=== PATIENT | male | born 1960 | race Caucasian/White ===

== ENCOUNTER 2017-07-23 09:55 | Inpatient (IN) | payer OTHER ==
--- NOTE | 2017-07-23 11:05 | ED ---
General Adult HPI - General Chief complaint: Psychiatric Symptoms Stated complaint: Anxiety Time Seen by Provider: 07/23/17 10:17 Source: patient, RN notes reviewed Mode of arrival: ambulatory Limitations: no limitations - History of Present Illness Initial comments: Patient 56-year-old male who presents emergency room today with a chief complaint of increased anxiety. He does admit that he's had some thoughts of hurting himself. He states that if he was planning to do anything he would use a gun. He states he does have guns at home. Patient denies because of hurting anyone else. He does admit to increased issues at work and at home. Does not want detail. Patient states that he has been taking Wellbutrin along with Xanax for many years. He states he does see a psychiatrist has not been recently was exposed to have an appointment this coming week. States having a very difficult time sleeping at night feel like is not functioning well and sent him here today. Patient denies any recent fever, chills, shortness of breath, chest pain, back pain, headaches or visual changes, or any other complaints. - Related Data Home Medications Medication Instructions Recorded Confirmed ALPRAZolam [Xanax] 0.5 mg PO BID PRN 07/23/17 07/23/17 buPROPion XL [Wellbutrin Xl] 150 mg PO DAILY 07/23/17 07/23/17 Allergies Allergy/AdvReac Type Severity Reaction Status Date / Time cefuroxime [From Ceftin] AdvReac Nausea & Verified 07/23/17 10:45 Vomiting paroxetine [From Paxil] AdvReac Confusion Verified 07/23/17 10:45 sertraline [From Zoloft] AdvReac Confusion Verified 07/23/17 10:45 Review of Systems ROS Statement: Those systems with pertinent positive or pertinent negative responses have been documented in the HPI. ROS Other: All systems not noted in ROS Statement are negative. Past Medical History Additional Past Medical History / Comment(s): kidney stones History of Any Multi-Drug Resistant Organisms: None Reported Past Surgical History: Hernia Repair, Orthopedic Surgery Past Psychological History: Anxiety, Depression Smoking Status: Never smoker Past Alcohol Use History: Occasional Past Drug Use History: None Reported General Exam - General Exam Comments Initial Comments: General: The patient is awake and alert, in no distress, and does not appear acutely ill. Eye: Pupils are equal, round and reactive to light, extra-ocular movements are intact. No nystagmus. There is normal conjunctiva bilaterally. No signs of icterus. Ears, nose, mouth and throat: There are moist mucous membranes and no oral lesions. Neck: The neck is supple, there is no tenderness or JVD. Cardiovascular: There is a regular rate and rhythm. No murmur, rub or gallop is appreciated. Respiratory: Lungs are clear to auscultation, respirations are non-labored, breath sounds are equal. No wheezes, stridor, rales, or rhonchi. Musculoskeletal: Normal ROM, no tenderness. Strength 5/5. Sensation intact. Pulses equal bilaterally 2+. Neurological: A&O x 3. CN II-XII intact, There are no obvious motor or sensory deficits. Coordination appears grossly intact. Speech is normal. Skin: Skin is warm and dry and no rashes or lesions are noted. Psychiatric: Cooperative, appropriate mood & affect, normal judgment. Limitations: no limitations Course Vital Signs 07/23/17 10:13 Temperature 97.3 F L Pulse Rate 84 Respiratory 16 Rate Blood Pressure 165/90 O2 Sat by Pulse 98 Oximetry Medical Decision Making - Medical Decision Making Patient's seen here in the emergency room by [facility]. The have recommend admission. Patient will sign himself in. Disposition Clinical Impression: Depression, Suicidal ideation Disposition: TRANSFER TO PSYCH HOSP/UNIT Condition: Stable Time of Disposition: 12:10
[2017-07-23] MEDS ORDERED: MAGNESIUM HYDROXIDE 2,400 MG/10 ML CUP PO PRN (13:32)
[2017-07-23] MEDS ORDERED: ZIPRASIDONE 20 MG VIAL IM PRN (13:32)
[2017-07-23] MEDS ORDERED: MAG HYDROX/AL HYDROX/SIMETH 30 ML CUP PO PRN (13:32)
[2017-07-23] MEDS ORDERED: ACETAMINOPHEN TAB 325 MG TAB PO PRN (13:32)
[2017-07-23] MEDS ORDERED: LORazepam 1 MG TAB PO PRN (13:32)
[2017-07-23 14:13] VITALS: BMI 25.2
[2017-07-23] MEDS ORDERED: OLANZapine 5 MG TAB PO STA (19:34)
[2017-07-23] MEDS: OLANZapine 5 MG TAB PO SCH (20:37)
[2017-07-23] MEDS: IMIPRAMINE 25 MG TAB PO SCH (20:37)
--- NOTE | 2017-07-24 04:37 | HP ---
HISTORY AND PHYSICAL IDENTIFYING DATA: The patient is a 56-year-old male. He lives alone. He presented to the emergency room for evaluation. CHIEF COMPLAINT: The patient has had increasing problems with anxiety, depression, and very poor sleep. He had thoughts of harming himself, including thoughts that he might use a gun. He did indicate that he has guns at home. HISTORY OF PRESENTING ILLNESS: The patient has not had a prior psychiatric hospitalization. He is followed by Dr. Simmons. Current psychotropic medications include Wellbutrin XL 150 mg a day and Xanax 0.5 mg twice a day p.r.n. The patient indicates that he rarely takes more than one tablet a day of Xanax. He says that in the last few weeks his sleep has taken abrupt turn. He will go to sleep. He thinks he is asleep for only a very short period of time and then suddenly he wakes in the start. He says he is wide awake. His mind is racing. He gets quite anxious and he is not able to fall back to sleep. 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 He notes that he first got into depression about 7 years ago when his father . He said he got into quite a bit of grief at that time and that was the first time he got very depressed. He said many things crashed in his life. He has been on the Wellbutrin and Xanax since then. He says going back in the last year he was doing fairly well during the summer. He thinks things seemed to begin to change for him in early May. He was having relationship issues. He was getting into some panic where he feels tightness in his chest in the epigastric area. He says that some complicating factors is that he had the flu at [place] and developed quite a bit of GI issues that were very bothersome with him. He got quite down with that. He says he has had on and off problems with both reflux and GERD. He has taken some GI medications though never felt they quite worked. He does drink alcohol occasionally, though says that his last use was at [employer] when he drank 2 beers. He has not had any alcohol since then. He has had the past periods where he has drank more. He said if he goes back to last summer he likely would have been drinking 3 to 5 beers twice a week and also if he was out with friends he might drink a number of years more than that. He feels that he has never had any alcohol- related issues. He has never been in treatment for any substance use issues. He does not smoke marijuana or use any other psychotropic medications. He says that his main issue currently is the intense anxiety he gets with the serious sleep disorder. He notes that some of the time he may be lying in bed and then start developing racing thoughts that he suggests could be drifting off into some dreams. He also will wake up and have a lot of vivid images. He says that in the past he felt his medications were doing well for him, but since May on he has slipped. He had loss of motivation, energy, and interest. He did not really describe specifically what stress issues he had at work. It is noted that he is single, never and has no children. Does seem to have a fairly isolated life with not much of a support network beyond people at work, though he acknowledges work relationships have been stressful. He is admitted for further evaluation. SUBSTANCE USE HISTORY: Negative. PAST MEDICAL HISTORY AND REVIEW OF SYSTEMS: As per medical consultation. FAMILY AND SOCIAL HISTORY: The only information I have is as above. He is a high school graduate. He has worked primarily in [employer] and feels that he has been successful at his work. MENTAL STATUS EXAM: Patient was somewhat restless. He gave good eye contact. Psychomotor activity was otherwise normal. He answered questions with direct responses. He had a flat affect. His mood was depressed. He seemed moderately distressed. He was appropriate in his interview. On cognitive exam, he was oriented x3 and alert. Recent and remote memory was intact. Attention and concentration were fair. Insight and judgment were fair. He could spell world forward and backwards. He did adequate calculations. Fund of knowledge and intellectual level average. PHYSICAL EXAM: As per medical consultation. ASSESSMENT: This 56-year-old male is diagnosed with major depression, chronic and recurrent severe with acute exacerbation without psychotic features. In addition, he likely has exacerbation from long-term use of benzodiazepines, namely Xanax and may well be having significant Xanax withdrawal issues. He likely has a very disturbed sleep pattern in part related to long-term use of benzodiazepines. He struggles with social supports, which seems to be quite a weakness for him. Strengths include that he functions well independently, maintains a good work habit and has some insight about his situation. DIAGNOSES: 1. Major depression, chronic and recurrent with acute exacerbation, severe, without psychotic features. 2. Xanax/benzodiazepine dependence in acute withdrawal. 3. Gastrointestinal distress. RECOMMENDATIONS: We will engage the patient in a comprehensive medical psychiatric and psychosocial evaluation. We will have the patient involved in individual and group therapeutic activities. I had an extensive discussion with the patient regarding risks with benzodiazepine use including both problems with memory and motor impairment. The patient can acknowledge that he identifies both those issues with some forgetfulness and some question in coordination. 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 I discussed the course of withdrawal, namely that we need to focus on withdrawal over the next several weeks and that I would look for some improvement in symptoms over the next 4 to 6 weeks. We discussed that we can work out a plan for him to develop some skills to help better manage early withdrawal symptoms. At this point, I will start the patient on Zyprexa 5 mg 3 times a day. The aim of Zyprexa is to help reduce physiologic stress response relating to benzodiazepine withdrawal. In addition, I suspect the patient may have some PTSD issues that Zyprexa may also help. In addition, I will increase Wellbutrin XL to 300 mg a day. I discussed that it would be reasonable to have him in a therapeutic level of his antidepressant, even though I would expect limited benefit at best from his antidepressant during the process of early benzodiazepine withdrawal. I will start the patient on Tofranil 25 mg at bedtime. The aim of Tofranil is to help improve sleep architecture to reduce the dreaming that seems like may be a problem for him falling asleep as well as midcycle awakening. Tofranil has the specific effect in increasing REM latency for dreaming to occur in the appropriate stage 4 sleep range of sleep. We had a discussion about long-term treatment issues. We will focus on stabilization and discharge planning. KAYY / MARSHA: [id number] /
[2017-07-24] MEDS: OLANZapine 5 MG TAB PO SCH ×2 (08:28→17:23)
[2017-07-24] MEDS: buPROPion XL 300 MG TAB.ER.24H PO SCH (08:28)
[2017-07-24 08:44] LABS: Basophils # (A) 0.1 k/uL (0-0.2); Basophils % (A) 1 %; Eosinophils # (A) 0.1 k/uL (0-0.7); Eosinophils % (A) 1 %; HGB 15.3 gm/dL (13.0-17.5); Lymphocytes # (A) 2.4 k/uL (1.0-4.8); Lymphocytes % (A) 31 %; MCH 29.6 pg (25.0-35.0); MCHC 31.8 g/dL (31.0-37.0); Mean Platelet Volume 7.3; Monocytes # (A) 0.4 k/uL (0-1.0); Monocytes % (A) 5 %; Neutrophils # (A) 4.6 k/uL (1.3-7.7); Neutrophils % (A) 59 %; Platelet Count 290 k/uL (150-450); RBC 5.16 m/uL (4.30-5.90); RDW 14.4 % (11.5-15.5); WBC 7.8 k/uL (3.8-10.6)
[2017-07-24] MEDS ORDERED: buPROPion XL 150 MG TAB.ER.24H PO SCH ×2 (09:00)
[2017-07-24 09:07] LABS: ALT 35 U/L (21-72); AST 19 U/L (17-59); Albumin 4.1 g/dL (3.5-5.0); Alkaline Phosphatase 62 U/L (38-126); Anion Gap 10 mmol/L; Blood Urea Nitrogen 17 mg/dL (9-20); Carbon Dioxide 32 mmol/L (22-30); Chloride 104 mmol/L (98-107); Glucose 100 mg/dL (74-99); Potassium 4.3 mmol/L (3.5-5.1); Sodium 146 mmol/L (137-145); Total Bilirubin 0.5 mg/dL (0.2-1.3); Total Protein 6.7 g/dL (6.3-8.2)
--- NOTE | 2017-07-24 11:07 | PN ---
PROGRESS NOTE DATE OF SERVICE: 07/24/2017 CHIEF COMPLAINT: The patient has had increasing problems with anxiety, depression, and very poor sleep. He had thoughts of harming himself including thoughts that he might use a gun. He did indicate that he had guns at home. INTERVAL HISTORY: Patient has been doing fair. He had a quiet evening last night. He said with some surprise that he slept well last night at least until 5 in the morning. He woke up at 5 and then was able to get to get back to sleep for a little longer. He says that was quite refreshing for him. He did not seem to have any nightmare experiences. He continues to say his mood is somewhat down. He noted that he would not be too inclined to get involved in individual psychotherapy. He asked questions about Xanax withdrawal issues. He has not had change in his general health. He tolerates his psychotropic medications. MENTAL STATUS: Patient gave fair eye contact. Psychomotor activity was slowed. Speech was monotone. He answered questions with brief responses. His thoughts were clear. His affect blunted. His mood quiet. He did not appear to be significantly distressed. ASSESSMENT: I will continue the current diagnosis and treatment plan. I will continue psychotropic medications the same. I had an extensive discussion with the patient regarding the benzodiazepine withdrawal issues. We discussed that therapy might be appropriate given that he has identified a number of stress issues including relationship issues and work stress. I discussed that on the other hand therapy tends to be fairly limited intervention in the early course of withdrawal and that it can be more effective in terms of some in depth cycle therapy when he is at least 6 to 8 weeks through benzodiazepine withdrawal. We will continue to focus on stabilization and discharge planning. MMODL / IJN: [id number] /
--- NOTE | 2017-07-24 14:57 | P.MDCNMH ---
History of Present Illness H&P Date: 07/24/17 This is a 56-year-old male patient of Dr. 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 Patient states that he has been on Wellbutrin and Xanax for years. He has had increased problems with depression for the past couple months and sleep problems for the last couple weeks. He states he lies in bed like a zombie for hours and cannot sleep. He also has trouble functioning. His mother brought him into [facility] emergency center for evaluation. He was then transferred and admitted to the mental health unit. Pressure has been running high and patient has not been on anything for this in the past. TSH 2.730. Patient states he received trazodone last night and was able to sleep. Review of Systems All systems: negative Constitutional: Denies chills, Denies fever Eyes: denies blurred vision, denies pain Ears, nose, mouth and throat: Denies headache, Denies sore throat Cardiovascular: Denies chest pain, Denies shortness of breath Respiratory: Denies cough Gastrointestinal: Denies abdominal pain, Denies diarrhea, Denies nausea, Denies vomiting Musculoskeletal: Denies myalgias Integumentary: Denies pruritus, Denies rash Neurological: Denies numbness, Denies weakness Psychiatric: Reports anxiety, Reports depression, Reports difficulty concentrating, Reports insomnia Endocrine: Denies fatigue, Denies weight change Past Medical History Additional Past Medical History / Comment(s): kidney stones, 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 Past Anesthesia/Blood Transfusion Reactions: No Reported Reaction Past Psychological History: Anxiety, Depression Smoking Status: Never smoker Past Alcohol Use History: Occasional Additional Past Alcohol Use History / Comment(s): Patient has been a lifelong nonsmoker. He drinks alcohol occasionally. He is single and lives alone. Past Drug Use History: None Reported - Past Family History Father Additional Family Medical History / Comment(s): Father at age 75 from an aneurysm. Mother Additional Family Medical History / Comment(s): Mother is alive at age 80 with no major medical problems. Sister(s) Additional Family Medical History / Comment(s): Patient has 1 sister with no major medical problems. Patient does not have any children. Medications and Allergies Home Medications Medication Instructions Recorded Confirmed Type ALPRAZolam [Xanax] 0.5 mg PO BID PRN 07/23/17 07/23/17 History buPROPion XL [Wellbutrin Xl] 150 mg PO DAILY 07/23/17 07/23/17 History Allergies Allergy/AdvReac Type Severity Reaction Status Date / Time cefuroxime [From Ceftin] AdvReac Nausea & Verified 07/23/17 10:45 Vomiting paroxetine [From Paxil] AdvReac Confusion Verified 07/23/17 10:45 sertraline [From Zoloft] AdvReac Confusion Verified 07/23/17 10:45 Physical Exam Vitals: Vital Signs Temp Pulse Pulse Resp BP BP Pulse Ox 07/24/17 06:41 98.4 F 70 16 138/84 07/23/17 13:58 97.9 F 77 20 142/91 98 07/23/17 12:39 69 17 158/92 97 Gen: This is a 56-year-old male. He is cooperative and appears anxious. HEENT: Head is atraumatic, normocephalic. Pupils equal, round. Sclerae is anicteric. NECK: Supple. No JVD. No lymphadenopathy. No thyromegaly. LUNGS: Clear to auscultation. No wheezes or rhonchi. No intercostal retractions. HEART: Regular rate and rhythm. No murmur. ABDOMEN: Soft. Bowel sounds are present. No masses. No tenderness. EXTREMITIES: No pedal edema. No calf tenderness. NEUROLOGICAL: Patient is awake, alert and oriented x3. Cranial nerves 2 through 12 are grossly intact. Cranial Nerve Examination - Cranial Nerves Cranial Nerve II- Optic: Intact Cranial Nerve III- Oculomotor: Intact Cranial Nerve IV- Trochlear: Intact Cranial Nerve V- Trigeminal: Intact Cranial Nerve - Abducens: Intact Cranial Nerve VII- Facial: Intact Cranial Nerve VIII- Auditory: Intact Cranial Nerve IX- Glossopharyngeal: Intact Cranial Nerve X- Vagus: Intact Cranial Nerve XI- Accessory: Intact Cranial Nerve XII- Hypoglossal: Intact Results CBC & Chem 7: 07/24/17 08:22 07/24/17 08:22 Labs: Abnormal Lab Results - Last 24 Hours (Table) 07/24/17 Range/Units 08:22 Sodium 146 H (137-145) mmol/L Carbon Dioxide 32 H (22-30) mmol/L Glucose 100 H (74-99) mg/dL Assessment and Plan Plan: 1. Recurrent depression and generalized anxiety disorder with insomnia. Patient admitted to the mental health unit. Continue current plan of care. 2. 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 3. Hypertension. Losartan 50 daily grams daily will be started. 4. Family history of aneurysm. Recommend patient have evaluation for aneurysm as an outpatient Impression and plan of care have been directed as dictated by the signing physician. Marguerite Matias nurse practitioner acting as scribe for signing physician.
[2017-07-24] MEDS: LOSARTAN 50 MG TAB PO SCH (17:23)
[2017-07-24] MEDS: IMIPRAMINE 25 MG TAB PO SCH (21:00)
[2017-07-24] MEDS: OLANZapine 2.5 MG TAB PO SCH (21:01)
[2017-07-25] MEDS: OLANZapine 2.5 MG TAB PO SCH (08:25)
[2017-07-25] MEDS: buPROPion XL 300 MG TAB.ER.24H PO SCH (08:25)
[2017-07-25] MEDS: LOSARTAN 50 MG TAB PO SCH (08:25)
[2017-07-25] MEDS ORDERED: OLANZapine 5 MG TAB PO ONE (13:02)
[2017-07-25] MEDS: OLANZapine 5 MG TAB PO SCH ×2 (17:33→21:18)
[2017-07-25] MEDS ORDERED: diphenhydrAMINE 50 MG CAP PO STA (17:38)
[2017-07-25] MEDS ORDERED: LOPERAMIDE 2 MG CAP PO PRN (17:38)
[2017-07-25] MEDS ORDERED: IMIPRAMINE 25 MG TAB PO SCH ×2 (19:15→21:00)
--- NOTE | 2017-07-25 20:56 | PN ---
PROGRESS NOTE DATE OF SERVICE: 07/25/2017 CHIEF COMPLAINT: The patient has had increasing problems with anxiety, depression and very poor sleep. He had thoughts of harming himself, including thoughts that he might use a gun. He did indicate that he had guns at home. INTERVAL HISTORY: Patient has been doing fair. He had a quiet evening last night. He said he did not sleep as well last night as he did the night before. His anxiety level has been up and down. He noted this morning that he had quite a bit of tremor that he had less of yesterday. He is quite anxious. He says that the anxiety seems to intensify the tremor, though also the tremor sets off more anxiety for him. He does come out in the day area. He will attend groups. He tends to be on the quiet side and does not interact too much with others. He appears to tolerate his psychotropic medications. MENTAL STATUS: Patient gave fair eye contact. He was restless. His thoughts were clear, his affect anxious, his mood dysphoric. He was moderately distressed. ASSESSMENT: I will continue the current diagnosis and the treatment plan. I will give him a one- time dose of Benadryl 100 mg p.o. It is not likely that he is experiencing extrapyramidal side effects from Zyprexa, though if he is, the Benadryl may help quiet that. I suspect the main issue is that he is in significant withdrawal relating to benzodiazepine withdrawal. We will continue to focus on stabilization and discharge planning. KAYY / MARSHA: [id number] /
[2017-07-26] MEDS: LOSARTAN 50 MG TAB PO SCH (08:32)
[2017-07-26] MEDS: buPROPion XL 300 MG TAB.ER.24H PO SCH (08:32)
[2017-07-26] MEDS: OLANZapine 5 MG TAB PO SCH ×3 (08:32→21:14)
--- NOTE | 2017-07-26 12:25 | DS ---
DISCHARGE SUMMARY DATE OF SERVICE: 07/26/2017 DATE OF ADMISSION: 07/23/2017 DATE OF DISCHARGE: 07/26/2017 ADMISSION AND DISCHARGE DIAGNOSES: 1. Major depression, chronic, recurrent with acute exacerbation, severe, without psychotic features. 2. Xanax, benzodiazepine dependence and acute withdrawal. 3. Gastrointestinal distress. HISTORY OF PRESENT ILLNESS: The patient is a 56-year-old male. He presented to the emergency room with increasing anxiety, depression, and very poor sleep. He had thoughts of harming himself including thoughts that he might use a gun. He did indicate that he had guns at home. He has been followed by Dr. Simmons and has been on a combination of Wellbutrin XL 150 mg a day and Xanax 0.5 mg twice a day as needed. The patient indicates that typically he would only take one Xanax per day. He noted in the last few weeks a sharp change in his sleep pattern. He would go to sleep and then abruptly wake up soon after and then not be able to fall back to sleep. His mind would race. He would get quite anxious. 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 He had some relationship issues and other family issues that were also distressing to him. He said he got into depression 7 years ago when his father . At that time he became very depressed. Since being on the Wellbutrin and Xanax, he felt that he was doing fairly well up until this last fall. He feels that somewhere around May he began having some decline in mood. He was also having relationship issues at that time. He had the flu at [place], which he says added to some of his distress. He minimized use of alcohol of late and did not identify any past issues with alcohol. He was admitted for further evaluation. PAST MEDICAL HISTORY AND PHYSICAL EXAM: As per medical consultation of Dr. Preston. MENTAL STATUS EXAM: The patient was somewhat restless. He gave good eye contact. Psychomotor activity was otherwise normal. He gave direct responses. His affect was flat. Mood depressed. He was moderately distressed. Cognitive exam was clear. COURSE OF HOSPITALIZATION: Patient was admitted for a comprehensive medical psychiatric and psychosocial evaluation. We engaged the patient in individual and group therapeutic activities. On admission I continued the patient on Wellbutrin XL though we increased his dose to 300 mg a day. I discontinued Xanax. I started the patient on Zyprexa 5 mg 3 times a day for management of physiologic stress response relating to early acute benzodiazepine withdrawal. I also started the patient on Tofranil 25 mg at bedtime. The aim of Tofranil was to help with sleep particularly in terms of its affect on improving sleep architecture. The patient had a somewhat up and down course in his limited time on the unit. The first night on his medications he slept fairly well. The next night, a little less so. He had ups and downs in anxiety. He had one point where he got quite tremulous. He attended activities. He was appropriate in his interactions. He tolerated his medications well. We had extensive discussions about expectations for early withdrawal. I discussed with the patient that Xanax would not be an appropriate long-term medication for him and also there are risks with Xanax particularly including memory and motor impairment. The patient had been noting trouble that he was having with memory and some difficulties with cognition. We discussed that as he gets through withdrawal, he is likely to see an improvement perhaps as early as 10 days off of Xanax. In addition, we discussed that it would be a risk for him to be taking Xanax and working in construction due to the potential for troubles with coordination and motor performance. The patient seemed to have a fairly good understanding of the expectations of withdrawal. He understands that he is likely to continue to have some ups and downs with anxiety, perhaps tremors and other physical symptoms of withdrawal, though I anticipate gradual and progressive improvement over the next 6 weeks. We discussed that the first target for clearing of withdrawal would be September 07. At that point, I would anticipate him being about 60% through withdrawal. However, I would suspect that he would see at least a moderate amount of improvement by that time. We did discuss that the first 2 weeks of withdrawal are likely to be the most problematic which is where he is at right now. He was willing to work on activities that could help lessen withdrawal. We talked about a therapeutic walking program for frequent walks outdoors to help relax and improve body mechanics. We discussed breathing activities. I encouraged the patient to look at some opportunities to have some social connection and get out in the community. The patient seemed to have good insight in regards to his situation and discharge plans. CONDITION AT DISCHARGE: Patient was stable. His mood was improved. He continued to have anxiety, though overall seemed to be less. He had good insight regarding the need to withdrawal completely off of benzodiazepines. He tolerated his medications well. RECOMMENDATIONS AND FOLLOWUP: Patient is discharged to home. He lives independently. DISCHARGE MEDICATIONS: 1. Wellbutrin XL 300 mg a day. 2. Zyprexa 5 mg 3 times a day. 3. Tofranil 25 mg, he understands to take 1 or 2 at bedtime. 4. He is also on Cozaar 50 mg a day. He has a followup appointment at [facility] in 1 week. He will be referred back to Dr. Maddox for primary care. MMODL / IJN: [id number] /
[2017-07-26] MEDS ORDERED: cloNIDine HCL 0.1 MG TAB PO STA (13:09)
[2017-07-26 16:15] VITALS: RESP 16
[2017-07-26] MEDS ORDERED: hydrOXYzine PAMOATE 25 MG CAP PO STA (20:37)
[2017-07-26] MEDS ORDERED: IMIPRAMINE 25 MG TAB PO SCH (21:00)
[2017-07-27 07:09] VITALS: BP 141/77; PULSE 102; TEMP 97.7
[2017-07-27] MEDS: buPROPion XL 300 MG TAB.ER.24H PO SCH (07:59)
[2017-07-27] MEDS: OLANZapine 5 MG TAB PO SCH (07:59)
[2017-07-27] MEDS: LOSARTAN 50 MG TAB PO SCH (08:28)
[2017-07-27] MEDS ORDERED: hydrOXYzine PAMOATE 25 MG CAP PO PRN (09:56)
--- NOTE | 2017-07-27 13:26 | DS ---
DISCHARGE SUMMARY DATE OF SERVICE: 07/27/2017. ADDENDUM: Please refer to my discharge summary of 07/26/2017 for details. The plan had been for the patient to be discharged on the . Before discharge, the patient had significant amount of anxiety. He was having tremors. He was having more problems in this regard with each day of his hospitalization. He requested to stay an additional day to see if he could get a little more help with managing symptoms. He did receive Benadryl 100 mg that evening. We had a family meeting today with his mother. The plan is for him to go and live with his mother for a period of time. We had an extensive discussion regarding managing early acute withdrawal. Mother seemed to be fairly insightful herself about his situation. The patient was able to identify some coping mechanisms that he thinks would help, especially over the next few weeks. His mother was in agreement. They talked about some things he could do in the community. We also continued talking about a therapeutic walking program. While the patient did have some tremor, he felt a little more assured that while withdrawal issues may get worse over the next week or 2 that he had a better range of skills to help manage. It is noted that he is about at day 4 of Xanax withdrawal and thus I would anticipate another 10 days of potentially increasing withdrawal symptoms. On the other hand, he does have medications focused on helping to better manage withdrawal issues. I reviewed his medications. The patient was in agreement with the discharge plan. He appeared to have good support from his mother. KAYY / MARSHA: [id number] /
== END 2017-07-27 12:54 | disposition home or self-care (01) | DRG 885 ==
LOC: EC 09:55 → 3MHU 12:22
PROVIDERS: ADMIT Psychiatry & Neurology Psychiatry; ATTEND Psychiatry & Neurology Psychiatry
DX: F33.2 Major depressive disorder, recurrent severe without psychotic features (principal); R45.851 Suicidal ideations; F13.239 Sedative, hypnotic or anxiolytic dependence with withdrawal, unspecified; F41.9 Anxiety disorder, unspecified; K21.9 Gastro-esophageal reflux disease without esophagitis; Z87.442 Personal history of urinary calculi
CPT/HCPCS: 80053; 82075; 84443; 85025; 99285

== ENCOUNTER → 2020-04-13 | Outpatient (CLI) | payer OTHER ==
--- NOTE | 2020-04-13 09:28 | MR ---
EXAMINATION TYPE: MR knee LT wo con DATE OF EXAM: 04/13/2020 COMPARISON: Prior MRI left knee April 03, 2014 HISTORY: Pain in left knee for months, history of prior knee surgery. TECHNIQUE: Multiplanar, multisequence images of the knee is performed without IV contrast. FINDINGS: MEDIAL MENISCUS: Anterior horn is intact without tear. Posterior horn we demonstrates irregular incre ased signal extending to inferior articular surface. LATERAL MENISCUS: Anterior and posterior horns are intact without tear. CRUCIATE LIGAMENTS: The posterior cruciate ligament is intact and unremarkable. Anterior cruciate lig ament is intact with increased signal and scanning of fibers sagittal image 17 for reference. COLLATERAL LIGAMENTS: The medial collateral ligament and lateral collateral ligament complex are inta ct and unremarkable. EXTENSOR MECHANISM: Visualized quadriceps and patellar tendons are intact. EFFUSION: Small suprapatellar joint effusion less prominent from prior.. POPLITEAL CYST: Small to borderline moderate size popliteal/brambila cyst sagittal image 26 similar to danielle [place]. TRICOMPARTMENT SPACES: Mild/moderate tricompartment joint space loss with mild tricompartment spurrin g. 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 Some increased cartilaginous thinning medial tibiof emoral compartment is noted. BONE MARROW SIGNAL: Focus of heterogeneous increased T2 signal at site of full-thickness cartilaginou s loss posterior patellar pole size image 19. Additional areas of subchondral cystic change medial as pect of the patella. Findings new from prior. Small focus of diminished T1 and increased T2 signal in the distal medial femoral condyle coronal venkatesh ge 20 similar to prior . Some cartilaginous thinning and reactive change deep anterior medial femora l condyle sagittal image 18 similar to prior. OTHER: No additional significant abnormality is appreciated. IMPRESSION: 1. Persistent or recurrent full-thickness tear posterior horn medial meniscus. 2. Small suprapatellar joint effusion improved from prior. 3. Moderate tricompartment degenerative changes as detailed above with progression from prior MRI, ne w chondromalacia patella is present. 4. Small to moderate-sized popliteal cyst slightly more prominent from prior. 5. 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
== END | disposition home or self-care (01) ==
LOC: RADMRIMAIN 07:32
PROVIDERS: ATTEND Orthopaedic Surgery
DX: M17.12 Unilateral primary osteoarthritis, left knee (principal); M22.42 Chondromalacia patellae, left knee; M71.22 Synovial cyst of popliteal space [Baker], left knee; M23.8X2 Other internal derangements of left knee

== ENCOUNTER 2022-01-01 10:48 | Emergency (ER) | payer OTHER ==
--- NOTE | 2022-01-01 12:26 | ED ---
General Adult HPI - General Chief complaint: Psychiatric Symptoms Stated complaint: Mental Health Time Seen by Provider: 01/01/22 11:47 Source: patient, RN notes reviewed Mode of arrival: ambulatory Limitations: no limitations - History of Present Illness Initial comments: 61-year-old male presents to the emergency room for a chief complaint of depression. Patient states he has been depressed since this past winter. He thinks it is from being closed in and everything going on in the [place] etc. patient states his depression has worsened over the past couple weeks. He has had insomnia where he was sleeping 3-4 hours the night but now he is sleeping 1- 2 hours per night. Over the past several months he has started to have suicidal thoughts as well. He does have guns at home but is not currently actively suicidal. Patient did have a previous inpatient psychiatric admission in the past. Patient is a and presents with his mother. Patient did recently see his doctor and his Wellbutrin was increased. He also takes Xanax 3 times a day. Patient has no other complaints at this time including shortness of breath, chest pain, abdominal pain, nausea or vomiting, headache, or visual changes. - Related Data Previous Rx's Medication Instructions Recorded Imipramine [Tofranil] 25 mg PO HS #60 tab 07/26/17 Loperamide [Imodium] 2 mg PO QID PRN cap 07/26/17 Losartan [Cozaar] 50 mg PO DAILY tab 07/26/17 OLANZapine [ZyPREXA] 5 mg PO TID #90 tab 07/26/17 buPROPion XL [Wellbutrin XL] 300 mg PO DAILY #30 tab.er.24h 07/26/17 LORazepam [Ativan] 1 mg PO HS 2 Days #2 tab 01/01/22 Allergies Allergy/AdvReac Type Severity Reaction Status Date / Time cefuroxime [From Ceftin] AdvReac Nausea & Verified 01/01/22 10:58 Vomiting paroxetine [From Paxil] AdvReac Confusion Verified 01/01/22 10:58 sertraline [From Zoloft] AdvReac Confusion Verified 01/01/22 10:58 Review of Systems ROS Statement: Those systems with pertinent positive or pertinent negative responses have been documented in the HPI. ROS Other: All systems not noted in ROS Statement are negative. 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 Past Anesthesia/Blood Transfusion Reactions: No Reported Reaction Past Psychological History: Anxiety, Depression Smoking Status: Never smoker Past Alcohol Use History: Rare Past Drug Use History: Marijuana - Past Family History Father Additional Family Medical History / Comment(s): Father at age 75 from an aneurysm. Mother Additional Family Medical History / Comment(s): Mother is alive at age 80 with no major medical problems. Sister(s) Additional Family Medical History / Comment(s): Patient has 1 sister with no major medical problems. Patient does not have any children. General Exam Limitations: no limitations General appearance: alert, in no apparent distress Head exam: Present: atraumatic Eye exam: Present: normal appearance, PERRL, EOMI. Absent: scleral icterus, conjunctival injection ENT exam: Present: normal exam, mucous membranes moist Neck exam: Present: normal inspection, full ROM. Absent: tenderness, meningismus Respiratory exam: Present: normal lung sounds bilaterally. Absent: respiratory distress, wheezes Cardiovascular Exam: Present: regular rate, normal rhythm, normal heart sounds Neurological exam: Present: alert Psychiatric exam: Present: depressed, suicidal ideation. Absent: homicidal ideation Course Vital Signs 01/01/22 01/01/22 10:53 14:30 Temperature 97.9 F 98.2 F Pulse Rate 87 80 Respiratory 16 18 Rate Blood Pressure 148/89 149/86 O2 Sat by Pulse 95 96 Oximetry Medical Decision Making - Medical Decision Making Vitals are stable. Patient to be evaluated by EPS, recommending dc home. States that patient is much improved and denying suicidal thoughts. He is going to live with his mother where there are no guns. He does not want to be admitted and is very agreeable to outpatient follow up which is scheduled with [facility] on monday. Again denying any suicidal thoughts at this time. Psychiatrist asking for me to Rx two 1 mg ativan tabs for nighttime as they are discontinuing Xanax. Patient and mother comfortable with this plan of dc and will return for worsening symptoms. Disposition Clinical Impression: Depression Disposition: HOME SELF-CARE Condition: Good Instructions (If sedation given, give patient instructions): Depression (ED) Additional Instructions: Discontinue Xanax. Take Ativan before bed. This was sent to [facility] on [address]. Please follow up with CM at your appointment on Monday. Return to the ER for any worsening symptoms. Prescriptions: LORazepam [Ativan] 1 mg PO HS 2 Days #2 tab Is patient prescribed a controlled substance at d/c from ED?: No Referrals: Zana Maddox MD [Primary Care Provider] - 1-2 days Time of Disposition: 17:25
[2022-01-01 18:21] VITALS: BP 136/80; PULSE 81; RESP 16; TEMP 97.8
== END 2022-01-01 18:21 | disposition home or self-care (01) ==
LOC: EC 10:48
DX: F32.A Depression, unspecified (principal); F41.9 Anxiety disorder, unspecified; F12.90 Cannabis use, unspecified, uncomplicated; Z79.899 Other long term (current) drug therapy
CPT/HCPCS: 82075; 99283

== ENCOUNTER 2022-01-11 16:26 | Emergency (ER) | payer OTHER ==
[2022-01-11 16:31] VITALS: TEMP 98.7
--- NOTE | 2022-01-11 16:52 | ED ---
General Adult HPI - General Source: patient, RN notes reviewed, old records reviewed Mode of arrival: ambulatory Limitations: no limitations <Braden Huerta - Last Filed: 01/11/22 16:51> <Charli Moura - Last Filed: 01/12/22 03:07> - General Chief complaint: Psychiatric Symptoms Stated complaint: trouble sleeping Time Seen by Provider: 01/11/22 16:35 - History of Present Illness Initial comments: 61-year-old male presents for evaluation of insomnia, depression, and suicidal thoughts. Patient was sent for evaluation by the psychiatric department at the [facility]. He denies suicide attempt. Denies alcohol. He is currently on Wellbutrin and Xanax. These medications have not been helping according to the patient. (Braden Huerta) - Related Data Home Medications Medication Instructions Recorded Confirmed ALPRAZolam [Xanax] 1 mg PO TID 01/11/22 01/11/22 Previous Rx's Medication Instructions Recorded Losartan [Cozaar] 50 mg PO DAILY tab 07/26/17 buPROPion XL [Wellbutrin XL] 300 mg PO DAILY #30 tab.er.24h 07/26/17 Allergies Allergy/AdvReac Type Severity Reaction Status Date / Time cefuroxime [From Ceftin] AdvReac Nausea & Verified 01/11/22 23:23 Vomiting paroxetine [From Paxil] AdvReac Confusion Verified 01/11/22 23:23 sertraline [From Zoloft] AdvReac Confusion Verified 01/11/22 23:23 Review of Systems ROS Other: All systems not noted in ROS Statement are negative. <Braden Huerta - Last Filed: 01/11/22 16:51> ROS Other: All systems not noted in ROS Statement are negative. <Charli Moura - Last Filed: 01/12/22 03:07> ROS Statement: Those systems with pertinent positive or pertinent negative responses have been documented in the HPI. 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 Past Anesthesia/Blood Transfusion Reactions: No Reported Reaction Past Psychological History: Anxiety, Depression Smoking Status: Never smoker Past Alcohol Use History: Rare Past Drug Use History: Marijuana - Past Family History Father Additional Family Medical History / Comment(s): Father at age 75 from an aneurysm. Mother Additional Family Medical History / Comment(s): Mother is alive at age 80 with no major medical problems. Sister(s) Additional Family Medical History / Comment(s): Patient has 1 sister with no major medical problems. Patient does not have any children. <Braden Huerta - Last Filed: 01/11/22 16:51> General Exam Limitations: no limitations General appearance: alert, in no apparent distress Head exam: Present: atraumatic, normocephalic Eye exam: Present: normal appearance, PERRL ENT exam: Present: normal exam Neck exam: Present: normal inspection Respiratory exam: Present: normal lung sounds bilaterally. Absent: respiratory distress, wheezes Cardiovascular Exam: Present: regular rate, normal rhythm GI/Abdominal exam: Present: soft. Absent: distended, tenderness, guarding Extremities exam: Present: normal inspection, normal capillary refill. Absent: pedal edema, calf tenderness Neurological exam: Present: alert, oriented X3. Absent: motor sensory deficit Psychiatric exam: Present: depressed, suicidal ideation, other (Patient is calm and cooperative) Skin exam: Present: warm, dry, intact. Absent: cyanosis, diaphoretic <Braden Huerta N - Last Filed: 01/11/22 16:51> Course <Braden Huerta - Last Filed: 01/11/22 16:51> <Charli Moura - Last Filed: 01/12/22 03:07> Vital Signs 01/11/22 01/11/22 01/11/22 16:27 19:40 20:00 Temperature 98.7 F 98.7 F 98.7 F Pulse Rate 87 61 Respiratory 20 20 Rate Blood Pressure 139/98 155/96 O2 Sat by Pulse 95 100 100 Oximetry 01/11/22 01/11/22 21:00 22:00 Temperature Pulse Rate 81 Respiratory Rate Blood Pressure 155/96 O2 Sat by Pulse 100 100 Oximetry - Reevaluation(s) Reevaluation #1: 01/11/22 16:52 Clear for EPS. (Braden Huerta) Reevaluation #2: 01/12/22 03:07 Medical record is reviewed Medically clear for psychiatric evaluation (Charli Moura) Medical Decision Making - Lab Data Result diagrams: 01/12/22 00:15 01/12/22 00:15 <Charli Moura - Last Filed: 01/12/22 03:07> - Medical Decision Making 61 male will be transferred for inpatient psychiatric evaluation and treatment (Charli Moura) - Lab Data Lab Results 01/11/22 01/11/22 01/12/22 Range/Units 17:00 18:00 00:15 WBC 11.9 H (3.8-10.6) k/uL RBC 5.00 (4.30-5.90) m/uL Hgb 15.3 (13.0-17.5) gm/dL Hct 46.0 (39.0-53.0) % MCV 92.1 (80.0-100.0) fL MCH 30.5 (25.0-35.0) pg MCHC 33.1 (31.0-37.0) g/dL RDW 13.0 (11.5-15.5) % Plt Count 239 (150-450) k/uL MPV 6.6 Neutrophils % 59 % Lymphocytes % 31 % Monocytes % 5 % Eosinophils % 1 % Basophils % 1 % Neutrophils # 7.0 (1.3-7.7) k/uL Lymphocytes # 3.6 (1.0-4.8) k/uL Monocytes # 0.6 (0-1.0) k/uL Eosinophils # 0.1 (0-0.7) k/uL Basophils # 0.1 (0-0.2) k/uL Sodium (137-145) mmol/L Potassium (3.5-5.1) mmol/L Chloride (98-107) mmol/L Carbon Dioxide (22-30) mmol/L Anion Gap mmol/L BUN (9-20) mg/dL Creatinine (0.66-1.25) mg/dL Est GFR (CKD-EPI)AfAm (>60 ml/min/1.73 sqM) Est GFR (CKD-EPI)NonAf (>60 ml/min/1.73 sqM) Glucose (74-99) mg/dL Calcium (8.4-10.2) mg/dL Salicylates mg/dL Urine Opiates Screen Not Detected (NotDetected) Ur Oxycodone Screen Not Detected (NotDetected) Urine Methadone Screen Not Detected (NotDetected) Ur Propoxyphene Screen Not Detected (NotDetected) Acetaminophen ug/mL Ur Barbiturates Screen Not Detected (NotDetected) U Tricyclic Antidepress Not Detected (NotDetected) Ur Phencyclidine Scrn Not Detected (NotDetected) Ur Amphetamines Screen Not Detected (NotDetected) U Methamphetamines Scrn Not Detected (NotDetected) U Benzodiazepines Scrn Detected H (NotDetected) Urine Cocaine Screen Not Detected (NotDetected) U Marijuana (THC) Screen Not Detected (NotDetected) Serum Alcohol mg/dL Coronavirus (PCR) Not Detected (Not Detectd) 01/12/22 Range/Units 00:15 WBC (3.8-10.6) k/uL RBC (4.30-5.90) m/uL Hgb (13.0-17.5) gm/dL Hct (39.0-53.0) % MCV (80.0-100.0) fL MCH (25.0-35.0) pg MCHC (31.0-37.0) g/dL RDW (11.5-15.5) % Plt Count (150-450) k/uL MPV Neutrophils % % Lymphocytes % % Monocytes % % Eosinophils % % Basophils % % Neutrophils # (1.3-7.7) k/uL Lymphocytes # (1.0-4.8) k/uL Monocytes # (0-1.0) k/uL Eosinophils # (0-0.7) k/uL Basophils # (0-0.2) k/uL Sodium 136 L (137-145) mmol/L Potassium 3.7 (3.5-5.1) mmol/L Chloride 104 (98-107) mmol/L Carbon Dioxide 23 (22-30) mmol/L Anion Gap 9 mmol/L BUN 16 (9-20) mg/dL Creatinine 0.88 (0.66-1.25) mg/dL Est GFR (CKD-EPI)AfAm >90 (>60 ml/min/1.73 sqM) Est GFR (CKD-EPI)NonAf >90 (>60 ml/min/1.73 sqM) Glucose 100 H (74-99) mg/dL Calcium 9.3 (8.4-10.2) mg/dL Salicylates <1.0 mg/dL Urine Opiates Screen (NotDetected) Ur Oxycodone Screen (NotDetected) Urine Methadone Screen (NotDetected) Ur Propoxyphene Screen (NotDetected) Acetaminophen <10.0 ug/mL Ur Barbiturates Screen (NotDetected) U Tricyclic Antidepress (NotDetected) Ur Phencyclidine Scrn (NotDetected) Ur Amphetamines Screen (NotDetected) U Methamphetamines Scrn (NotDetected) U Benzodiazepines Scrn (NotDetected) Urine Cocaine Screen (NotDetected) U Marijuana (THC) Screen (NotDetected) Serum Alcohol <10 mg/dL Coronavirus (PCR) (Not Detectd) Disposition <Braden Huerta - Last Filed: 01/11/22 16:51> Is patient prescribed a controlled substance at d/c from ED?: No Time of Disposition: 01:00 <Charli Moura - Last Filed: 01/12/22 03:07> Clinical Impression: Depression, Suicidal ideation Disposition: TRANSFER TO PSYCH HOSP/UNIT Condition: Fair Referrals: Zana Maddox MD [Primary Care Provider] - 1-2 days
[2022-01-11 19:00] LABS: Amphetamine Screen,Urine Not Detected (NotDetected); Barbiturate Screen,Urine Not Detected (NotDetected); Benzodiazepines Screen,Urine Detected (NotDetected); Cocaine Screen,Urine Not Detected (NotDetected); Methadone Screen, Urine Not Detected (NotDetected); Opiate Screen,Urine Not Detected (NotDetected); Oxycodone Screen, Urine Not Detected (NotDetected); Phencyclidine Screen,Urine Not Detected (NotDetected); Tricyclic Antidepressant,Urine Not Detected (NotDetected); Urn Cannabinoid Scrn Not Detected (NotDetected)
[2022-01-12 00:24] LABS: Basophils # (A) 0.1 k/uL (0-0.2); Basophils % (A) 1 %; Eosinophils # (A) 0.1 k/uL (0-0.7); Eosinophils % (A) 1 %; HGB 15.3 gm/dL (13.0-17.5); Lymphocytes # (A) 3.6 k/uL (1.0-4.8); Lymphocytes % (A) 31 %; MCH 30.5 pg (25.0-35.0); MCHC 33.1 g/dL (31.0-37.0); MCV 92.1 fL (80.0-100.0); Mean Platelet Volume 6.6; Monocytes # (A) 0.6 k/uL (0-1.0); Monocytes % (A) 5 %; Neutrophils % (A) 59 %; Platelet Count 239 k/uL (150-450); WBC 11.9 k/uL (3.8-10.6)
[2022-01-12 00:33] LABS: Acetaminophen <10.0 ug/mL; African American GFR (CKD) >90 (>60 ml/min/1.73 sqM); Alcohol <10 mg/dL; Anion Gap 9 mmol/L; Blood Urea Nitrogen 16 mg/dL (9-20); Calcium 9.3 mg/dL (8.4-10.2); Carbon Dioxide 23 mmol/L (22-30); Chloride 104 mmol/L (98-107); Glucose 100 mg/dL (74-99); Non-African American GFR(CKD) >90 (>60 ml/min/1.73 sqM); Potassium 3.7 mmol/L (3.5-5.1); Salicylate <1.0 mg/dL; Sodium 136 mmol/L (137-145)
[2022-01-12] MEDS ORDERED: ACETAMINOPHEN TAB 325 MG TAB PO STA ×2 (05:48→10:58)
[2022-01-12 05:53] LABS: Appearance,Urine Clear (Clear); Bilirubin,Urine Negative (Negative); Blood,Urine Negative (Negative); Color,Urine Light Yellow; Glucose,Urine (UA) Negative (Negative); Ketones,Urine Negative (Negative); Leukocyte Esterase,Urine Negative (Negative); Nitrite,Urine Negative (Negative); PH, Urine 6.5 (5.0-8.0); Protein,Urine Negative (Negative); Urobilinogen,Urine <2.0 mg/dL (<2.0)
[2022-01-12 08:35] VITALS: BP 147/88; PULSE 79; RESP 16
[2022-01-12] MEDS: ALPRAZolam 1 MG TAB PO SCH ×2 (08:36→17:53)
[2022-01-12] MEDS ORDERED: LOSARTAN 50 MG TAB PO SCH (09:00)
[2022-01-12] MEDS ORDERED: buPROPion XL 300 MG TAB.ER.24H PO SCH (09:00)
== END 2022-01-12 21:15 ==
LOC: EC 16:26
DX: F32.A Depression, unspecified (principal); R45.851 Suicidal ideations; Z20.822 Contact with and (suspected) exposure to COVID-19; Z88.1 Allergy status to other antibiotic agents; Z88.9 Allergy status to unspecified drugs, medicaments and biological substances; Z88.2 Allergy status to sulfonamides
CPT/HCPCS: 36415; 80048; 80143; 80179; 80306; 80320; 81003; 82075; 85025; 87635; 93005; 99285

== ENCOUNTER → 2022-03-21 | Outpatient (CLI) | payer OTHER ==
--- NOTE | 2022-03-21 22:46 | MR ---
EXAMINATION TYPE: MR brain wo/w con DATE OF EXAM: 03/21/2022 COMPARISON: NONE HISTORY: Memory issues, trouble sleeping TECHNIQUE: Multiplanar, multisequence images of the brain and brainstem is performed without and with IV contras t, utilizing 8.5 mL intravenous Gadavist . FINDINGS: Diffusion weighted images demonstrate no evidence of a recent infarct or other diffusion ab normality. There is no extra-axial fluid collection or significant white matter signal abnormality. The ventricular system and cisternal spaces are normal in size and appearance. The brain volume is age appropriate. Midline structures demonstrate normal morphology. The craniocervical junction appears within normal limits. Post contrast images demonstrate no abnormal enhancement. The dural venous sinuses appear pa tent. The visualized sinuses are clear and the globes are intact. There is incidental 2.0 cm anterior superior soft tissue scalp lesion sagittal image 14 tapering sebaceous cyst or other benign dermatol ogic lesion. Increased fluid signal left petrous apex axial image 8 raised concern for petrous apicit is in the appropriate clinical setting, correlate clinically. IMPRESSION: Possible left-sided petrous apicitis, correlate clinically. Incidental anterior superior midline 2.0 cm dermatologic lesion. Source of patient's memory symptoms and difficulty sleeping not i dentified.
== END | disposition home or self-care (01) ==
LOC: RADMRIMAIN 16:45
PROVIDERS: ATTEND Internal Medicine
DX: I67.1 Cerebral aneurysm, nonruptured (principal)
CPT/HCPCS: 70553; A9585

== ENCOUNTER 2022-05-17 08:16 | Day surgery (SDC) | payer OTHER ==
[2022-05-17] MEDS ORDERED: LIDOCAINE 1% (10MG/ML) FOR IV START INTRADERMA PRN (08:32)
[2022-05-17] MEDS ORDERED: LACTATED RINGERS 1,000 ML IV SCH (08:32)
[2022-05-17 09:33] VITALS: RESP 16; TEMP 97.1
[2022-05-17] MEDS ORDERED: PROPOFOL 10 MG/ML 20 ML VIAL IV ONE (10:01)
--- NOTE | 2022-05-17 10:26 | P.PCN ---
Date of Procedure: 05/17/22 Procedure(s) Performed: BRIEF HISTORY: Patient is a 61-year-old pleasant white male scheduled for an elective colonoscopy as a part of screening for colon cancer. PROCEDURE PERFORMED: Colonoscopy. PREOPERATIVE DIAGNOSIS: Screening for colon cancer. IV sedation per Anesthesia. PROCEDURE: After informed consent was obtained, the patient, was brought into the endoscopy unit. IV sedation was administered by Anesthesia under continuous monitoring. Digital rectal examination was normal. Initially the Olympus CF-160 flexible video colonoscope was then inserted in the rectum, gradually advanced into the cecum without any difficulty. Careful examination was performed as the scope was gradually being withdrawn. Ileocecal valve and the appendiceal orifice were visualized and appeared normal. Prep was excellent. Mucosa of the cecum, ascending colon, transverse colon, descending colon, sigmoid colon, and rectum appeared normal. Sigmoid diverticulosis. Retroflexion was performed in the rectum and no lesions were seen. The patient tolerated the procedure well. IMPRESSION: Normal-appearing colon from rectum to cecum with no evidence of colorectal neoplasia Moderate sigmoid diverticulosis. . RECOMMENDATIONS: Findings of this examination were discussed with the patient as well as his family. He was advised to have a repeat screening colonoscopy in 10 years..
[2022-05-17 11:15] VITALS: BP 149/91; PULSE 67
== END 2022-05-17 11:22 | disposition home or self-care (01) ==
LOC: ORWHC2ENDO 08:16
PROVIDERS: ATTEND Internal Medicine Gastroenterology
DX: Z12.11 Encounter for screening for malignant neoplasm of colon (principal); K57.30 Diverticulosis of large intestine without perforation or abscess without bleeding; I10 Essential (primary) hypertension; N20.0 Calculus of kidney; Z88.1 Allergy status to other antibiotic agents; Z88.8 Allergy status to other drugs, medicaments and biological substances; Z79.899 Other long term (current) drug therapy
CPT/HCPCS: 45378; J2704

== ENCOUNTER 2023-11-15 08:57 | Emergency (ER) | payer OTHER ==
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
[2023-11-15] MEDS: HYDROmorphone 1 MG/ML 1 ML SYRINGE IVP STA (10:58)
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
[2023-11-15 14:29] VITALS: BP 131/80; PULSE 60; RESP 18; TEMP 97.6
== END 2023-11-15 12:48 | disposition home or self-care (01) ==
LOC: EC 08:57
DX: S52.592A Other fractures of lower end of left radius, initial encounter for closed fracture (principal); Z88.8 Allergy status to other drugs, medicaments and biological substances; V89.2XXA Person injured in unspecified motor-vehicle accident, traffic, initial encounter
CPT/HCPCS: 73200; 99284; 96374; J1170

== ENCOUNTER 2024-03-14 13:59 | Emergency (ER) | payer MEDICARE, OTHER ==
[2024-03-14 14:02] VITALS: RESP 18
--- NOTE | 2024-03-14 14:22 | ED ---
Animal Bite HPI - General Chief Complaint: Animal Bite Stated Complaint: Animal bite on face Time Seen by Provider: 03/14/24 14:19 Source: patient, RN notes reviewed Mode of arrival: ambulatory Limitations: no limitations - History of Present Illness Initial Comments: 63-year-old male presenting to the ER with a chief complaint of an animal bite. Patient states he was petting his friend's dog who recently had puppies when the dog either scratched or bit his face causing a laceration. He states it happened so fast he was unsure of how with the wound occurred. Patient reports a laceration to bottom lip from incident. At first was profusely bleeding but has since resolved with compression. Patient's tetanus is up-to-date. Patient denies any other injuries or complaints. - Related Data Home Medications Medication Instructions Recorded Confirmed Escitalopram [Lexapro] 20 mg PO DAILY 05/13/22 11/15/23 QUEtiapine [SEROquel] 100 mg PO HS 11/15/23 11/15/23 Tamsulosin HCl [Flomax] 0.4 mg PO DAILY 11/15/23 11/15/23 buPROPion XL [Wellbutrin XL] 300 mg PO DAILY 11/15/23 11/15/23 Previous Rx's Medication Instructions Recorded Losartan [Cozaar] 50 mg PO DAILY tab 07/26/17 HYDROcodone/APAP 5-325MG [[place] 1 tab PO Q6HR PRN 3 Days #12 tab 11/15/23 5-325] Amoxic-Pot Clav 875-125Mg 1 tab PO Q12HR #20 tab 03/14/24 [Augmentin 875-125] Allergies Allergy/AdvReac Type Severity Reaction Status Date / Time cefuroxime [From Ceftin] AdvReac Nausea & Verified 11/15/23 11:57 Vomiting paroxetine [From Paxil] AdvReac Confusion Verified 11/15/23 11:57 sertraline [From Zoloft] AdvReac Confusion Verified 11/15/23 11:57 Review of Systems ROS Statement: Those systems with pertinent positive or pertinent negative responses have been documented in the HPI. ROS Other: All systems not noted in ROS Statement are negative. Past Medical History Past Medical History: Hypertension Additional Past Medical History / Comment(s): kidney stones, past hx. fx. 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 colon polyps, occasional palpitations History of Any Multi-Drug Resistant Organisms: None Reported Past Surgical History: Hernia Repair, Orthopedic Surgery Additional Past Surgical History / Comment(s): Fusion left wrist, colonoscopy, bilateral inguinal hernia repair, lithotripsy x2, arthroscopic left knee Past Anesthesia/Blood Transfusion Reactions: No Reported Reaction Past Psychological History: Anxiety, Depression Smoking Status: Never smoker Past Alcohol Use History: Rare Past Drug Use History: None Reported - Past Family History Father Additional Family Medical History / Comment(s): Father at age 75 from an aneurysm. Mother Additional Family Medical History / Comment(s): Mother is alive at age 80 with no major medical problems. Sister(s) Additional Family Medical History / Comment(s): Patient has 1 sister with no major medical problems. Patient does not have any children. General Exam Limitations: no limitations General appearance: alert, in no apparent distress ENT exam: Present: normal exam (2cm gaping laceration to bottom lip. not through mucosal mucoua. No active bleeding.), normal oropharynx, mucous membranes moist Respiratory exam: Present: normal lung sounds bilaterally. Absent: respiratory distress, wheezes, rales, rhonchi, stridor Cardiovascular Exam: Present: regular rate, normal rhythm, normal heart sounds. Absent: systolic murmur, diastolic murmur, rubs, gallop, clicks Neurological exam: Present: alert, oriented X3, CN II-XII intact Skin exam: Present: warm, dry, intact, normal color. Absent: rash Course Vital Signs 03/14/24 03/14/24 14:00 15:10 Temperature 99.1 F 98.1 F Pulse Rate 67 76 Respiratory 18 18 Rate Blood Pressure 171/81 156/76 O2 Sat by Pulse 98 99 Oximetry Medical Decision Making - Medical Decision Making Was pt. sent in by a medical professional or institution (, PA, PSYCH ARNP, urgent care, hospital, or correction...) When possible be specific @ -No Did you speak to anyone other than the patient for history (EMS, parent, family, police, friend...)? What history was obtained from this source @ -No Did you review nursing and triage notes (agree or disagree)? Why? @ -I reviewed and agree with nursing and triage notes Were old charts reviewed (outside hosp., previous admission, EMS record, old EKG, old radiological studies, urgent care reports/EKG's, correction records)? Report findings @ -No old charts were reviewed Differential Diagnosis (chest pain, altered mental status, abdominal pain women, abdominal pain men, vaginal bleeding, weakness, fever, dyspnea, syncope, headache, dizziness, GI bleed, back pain, seizure, CVA, palpatations, mental health, musculoskeletal)? @ -Laceration, abrasion, contusion, avulsion, foreign body this list is not meant to be all-inclusive EKG interpreted by me (3pts min.). @ -None X-rays interpreted by me (1pt min.). @ -None done CT interpreted by me (1pt min.). @ -None done U/S interpreted by me (1pt. min.). @ -None done What testing was considered but not performed or refused? (CT, X-rays, U/S, labs)? Why? @ -Laceration repair recommended, patient refused stated he would like a plastic surgeon to complete this. Rabies vaccines, refused by patient. What meds were considered but not given or refused? Why? @ -None Did you discuss the management of the patient with other professionals (professionals i.e. , PA, PSYCH ARNP, lab, RT, psych nurse, social media manager, motor tune up specialist, teacher, amphibious operations officer, shoe caser)? Give summary @ -No Was smoking cessation discussed for >3mins.? @ -No Was critical care preformed (if so, how long)? @ -No Were there social determinants of health that impacted care today? How? (Homelessness, low income, unemployed, alcoholism, drug addiction, transportation, low edu. Level, literacy, decrease access to med. care, fdc, rehab)? @ -No Was there de-escalation of care discussed even if they declined (Discuss DNR or withdrawal of care, Hospice)? DNR status @ -No What co-morbidities impacted this encounter? (DM, HTN, Smoking, COPD, CAD, Cancer, CVA, ARF, Chemo, Hep., AIDS, mental health diagnosis, sleep apnea, morbid obesity)? @ -None Was patient admitted / discharged? Hospital course, mention meds given and route, prescriptions, significant lab abnormalities, going to OR and other pertinent info. @ -Discharge. 63-year-old male presented to ER with a chief complaint of an animal bite. History and physical exam completed. Vitals within normal limits. Patient in no signs of acute distress. Exam remarkable for a 2 cm laceration to bottom lip. Does involve vermilion border. No active bleeding. Patient's tetanus is up-to-date. Patient refusing rabies vaccines. Augmentin prescribed, first dose in the ER. Patient refusing laceration repair as he would like a plastic surgeon to complete repair. I explained in depth that patient would h ave to be seen at a facility with a plastic surgeon on-call. Patient states he will transport himself to that facility. Strict return parameters discussed. Patient discharged in stable condition. Patient verbally expressed understanding agree with care plan. Case discussed with ED attending, Dr. Huerta. Undiagnosed new problem with uncertain prognosis? @ -No Drug Therapy requiring intensive monitoring for toxicity (Heparin, Nitro, Insulin, Cardizem)? @ -No Were any procedures done? @ -No Diagnosis/symptom? @ -Dog bite/laceration Acute, or Chronic, or Acute on Chronic? @ -Acute Uncomplicated (without systemic symptoms) or Complicated (systemic symptoms)? @ -Uncomplicated Side effects of treatment? @ -No Exacerbation, Progression, or Severe Exacerbation? @ -No Poses a threat to life or bodily function? How? (Chest pain, [place], [place], pneumonia, PE, COPD, DKA, ARF, appy, cholecystitis, CVA, Diverticulitis, Homicidal, Suicidal, threat to staf nof... and all critical care pts) @ -No Disposition Clinical Impression: Dog bite, Laceration Disposition: HOME SELF-CARE Condition: Stable Instructions (If sedation given, give patient instructions): Animal Bite (ED) Additional Instructions: Complete full course of antibiotics. Follow-up with PCP. Return to the ER for any new or worsening symptoms. Prescriptions: Amoxic-Pot Clav 875-125Mg [Augmentin 875-125] 1 tab PO Q12HR #20 tab Is patient prescribed a controlled substance at d/c from ED?: No Referrals: Zana Maddox MD [Primary Care Provider] - 1-2 days Time of Disposition: 14:27
[2024-03-14] MEDS: AMOXIC-POT CLAV 875-125MG 1 EACH TAB PO STA (14:38)
[2024-03-14 15:12] VITALS: BP 156/76; PULSE 76; TEMP 98.1
== END 2024-03-14 15:26 | disposition home or self-care (01) ==
LOC: EC 13:59
CPT/HCPCS: 99283